=== PATIENT | male | born 1965 | race Caucasian/White ===

== ENCOUNTER 2020-08-18 00:13 | Outpatient (CLI) | payer OTHER, SELFPAY ==
[2020-08-18 19:24] LABS: SARS-CoV-2 RNA PCR Negative
== END 2020-08-18 00:14 | disposition home or self-care (01) ==
LOC: ANHCOVIDDT 00:13
PROVIDERS: PCP Internal Medicine; Visit Provider Internal Medicine Gastroenterology
DX: Z20.828 Contact with and (suspected) exposure to other viral communicable diseases (principal)
CPT/HCPCS: 87635; C9803; U0003

== ENCOUNTER 2020-08-21 01:19 | Day surgery (SDC) | payer OTHER, SELFPAY ==
[2020-08-15 08:40] VITALS: BMI 28.4
[2020-08-21 08:45] VITALS: BP 110/74; PULSE 80; RESP 16; TEMP 36.2; O2SAT 99; BMI 28.7
[2020-08-21] MEDS: LACTATED RINGERS 1,000 ML 150 ML IV CONT (08:53)
--- NOTE | 2020-08-21 09:09 | WPDANESEPPF ---
Anes - Initial Pre Proc Eval Procedure: Operation Date: 08/21/20 10:00 Proposed Procedures p Screening Colonoscopy - Vaughn Ely MD Date/Time: 08/21/20 09:09 Surgeon: Vaughn Ely MD Pre Op Diagnosis: neoplasm screening, hx colon polyps Patient Data Age: 55 Gender: M Height: 5 ft 10 in Weight: 90.7 kg Last Vital Signs Temp 97.2 F L 08/21/20 08:45 Pulse 80 08/21/20 08:45 Resp 16 08/21/20 08:45 BP 110/74 08/21/20 08:45 Pulse Ox 99 08/21/20 08:45 Allergies Allergy/AdvReac Type Severity Reaction Status Date / Time No Known Allergies Allergy Unknown Verified 08/21/20 08:45 Home Medications Medication Instructions Recorded Confirmed Type No Home Medications 08/15/20 08/21/20 History Patient hx anesthesia problems: none Family hx anesthesia problems: none PMFSH Past Medical History Medical History (Updated 08/21/20 @ 09:10 by Cliff Diaz MD) Healthy adult Family History Family History (Updated 05/26/14 @ 07:13 by DOCTOR UNKNOWN) Mother Family history of lung cancer Father Family history of malignant neoplasm of esophagus Social History Social History Smoking status: Never smoker Alcohol intake: current Drinks per week: 12 Substance use: never Substance use type: does not use Living arrangements: with family Gender identity (if verbalized by the patient): Male Spiritual care concerns: No Anes - Eval Final PreProcedure Day of Procedure 08/21/20 09:09 Patient weight: normal Heart: regular rate and rhythm Lungs: clear to auscultation Airway: Mallampati scale class II Neurological: alert and oriented Last oral intake: >/= 8 hours ASA classification: II Emergent: no Anesthetic plan: proceed Anesthesia type and monitoring: general GIVS and standard monitoring Informed Consent: The patient's anesthetic plan and its attendant risks and benefits were discussed with the patient/family/POA. Questions were solicited and answers provided to the satisfaction of the patient/family/POA.
--- NOTE | 2020-08-21 09:29 | WPDGICN ---
Assessment and Plan Assessment and plan (1) History of colon polyps: Code(s): Z86.010 - Personal history of colonic polyps Status: Acute Assessment and Plan: Patient has a history of large colon polyp requiring piecemeal removal. He had recurrent polyp at the site of previous tattooing in previous large polyp resection. He presents today for surveillance colonoscopy. Further recommendations will be given after endoscopy. GI Consult Note Consult date/time: 08/21/20 09:29 HPI: Owen Wright is a 55 year old male Seen in evaluation at the request of Dr. Zafar Robertson. Patient has a history of rather large colon polyp. Surveillance colonoscopy 1 year ago revealed recurrent polyp at the site of previous large colon resection. At the area where tattoo was. Patient presents today for follow-up examination. Current weight appetite bowel movements are normal. He denies abdominal pain he has had no bleeding. Family history is noncontributory. Review of Systems Review of Systems: All systems reviewed & are unremarkable except as noted in HPI and below PMFSH Past Medical History Medical History (Updated 08/21/20 @ 09:31 by Vaughn Ely MD) Healthy adult Family History Family History (Updated 05/26/14 @ 07:13 by DOCTOR UNKNOWN) Mother Family history of lung cancer Father Family history of malignant neoplasm of esophagus Social History Social History Smoking status: Never smoker Alcohol intake: current Drinks per week: 12 Substance use: never Substance use type: does not use Living arrangements: with family Gender identity (if verbalized by the patient): Male Spiritual care concerns: No Meds Home Medications and Allergies Home Medications Medication Instructions Recorded Confirmed Type No Home Medications 08/15/20 08/21/20 History Allergies Allergy/AdvReac Type Severity Reaction Status Date / Time No Known Allergies Allergy Unknown Verified 08/21/20 08:45 Vital Signs Vital Signs - 24 hr 08/21/20 08:45 Temperature 97.2 F L Pulse Rate 80 Respiratory Rate 16 Blood Pressure 110/74 Pulse Oximetry 99 Exam Narrative: Exam Narrative: Physical exam reveals Vital Signs to be stable. HEENT exam unremarkable. Lungs are clear to auscultation and percussion. Heart is without murmur or extra sounds. Abdominal exam bowel sounds present soft nontender with no organomegaly. Digital external rectal exam normal.
[2020-08-21 09:52] VITALS: BP 105/67; PULSE 68; RESP 19; O2SAT 98
[2020-08-21 10:02] VITALS: BP 100/64; PULSE 66; RESP 18; O2SAT 99
[2020-08-21 10:12] VITALS: BP 104/67; PULSE 66; RESP 20; O2SAT 97
== END 2020-08-21 10:25 | disposition home or self-care (01) ==
PROVIDERS: PCP Internal Medicine; Visit Provider Internal Medicine Gastroenterology
PROC: 0DJD8ZZ Inspection of Lower Intestinal Tract, Via Natural or Artificial Opening Endoscopic (ICD-10-PCS; CPT 45378; principal; 2020-08-21 10:00)
DX: Z09 Encounter for follow-up examination after completed treatment for conditions other than malignant neoplasm (principal); D12.3 Benign neoplasm of transverse colon; K64.8 Other hemorrhoids
CPT/HCPCS: 45385; 88305; J2704; J7120

== ENCOUNTER 2023-08-26 02:47 | Day surgery (SDC) | payer OTHER, SELFPAY ==
[2023-08-06 14:44] VITALS: BMI 30.9
--- NOTE | 2023-08-25 09:01 | SUR.PREOP ---
Patient called regarding upcoming procedure. Reviewed preop instructions, appointment times, and procedure prep.
[2023-08-26 06:49] VITALS: BP 132/81; PULSE 94; RESP 16; TEMP 36.1; O2SAT 100; BMI 30.4
[2023-08-26] MEDS: LACTATED RINGERS 1,000 ML 150 ML IV CONT (06:56)
--- NOTE | 2023-08-26 07:29 | P.HP_ITS ---
History of Present Illness History of Present Illness Consent: Risks, benefits, and alternatives have been discussed and questions answered. Patient agrees to proceed with procedure. Chief complaint: hx colon polyps Narrative: Owen Wright is a 58 year old male Presents for colonoscopy. Patient's current weight appetite and bowel movements are normal. Patient has a history of adenomatous colon polyp removed in 2019. Patient's family history is noncontributory. Patient presents today for screening colonoscopy. Review of Systems Review of Systems: Review of systems noncontributory. 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 Healthy adult Hyperlipidemia Hypertriglyceridemia MRSA (methicillin resistant Staphylococcus aureus) Surgical History Surgical History (Updated 05/28/23 @ 11:02 by Lori Barry CMA) H/O colonoscopy Hx of LASIK Family History Family History Mother Family history of lung cancer Father Family history of malignant neoplasm of esophagus Social History Social History Smoking status: Never smoker Alcohol intake: current Drinks per week: 12 Substance use: never Substance use type: does not use Living arrangements: with family Gender identity (if verbalized by the patient): Male Spiritual care concerns: No Meds Home Medications and Allergies Home Medications Medication Instructions Recorded Confirmed Type atorvastatin 10 mg tablet (Lipitor) 10 mg PO QHS #90 tabs 05/28/23 08/26/23 Rx Allergies Allergy/AdvReac Type Severity Reaction Status Date / Time No Known Allergies Allergy Unknown Verified 08/26/23 06:48 Vital Signs Vital Signs - 24 hr 08/26/23 06:49 Temperature 97 F L Pulse Rate 94 Respiratory Rate 16 Blood Pressure 132/81 Pulse Oximetry 100 Oxygen Delivery Room Air Exam Narrative: Physical exam reveals patient to be alert. Vital signs stable. HEENT ENT exam is unremarkable. Patient is anicteric. Lungs are clear to auscultation and percussion. Heart is without murmur or extra sounds. Abdomen bowel sounds are present soft nontender with no hepatosplenomegaly. Digital external rectal exam is normal. Assessment and Plan Assessment and plan (1) History of colon polyps: Code(s): Z86.010 - Personal history of colonic polyps Status: Acute Assessment and Plan: Patient has a history of a large adenomatous colon polyp removed in 2020. Plan for surveillance colonoscopy at this time.
--- NOTE | 2023-08-26 07:45 | P.PNAN_ITS ---
Anes - Initial Pre Proc Eval Procedure: Operation Date: 08/26/23 08:00 Proposed Procedures p Colonoscopy - Vaughn Ely MD Date/Time: 08/26/23 07:45 Surgeon: Vaughn Ely MD Pre Op Diagnosis: hx colon polyps Patient Data Age: 58 Gender: M Height: 1.78 m Weight: 96.4 kg Last Vital Signs Temp 97 F L 08/26/23 06:49 Pulse 94 08/26/23 06:49 Resp 16 08/26/23 06:49 BP 132/81 08/26/23 06:49 Pulse Ox 100 08/26/23 06:49 O2 Del Method Room Air 08/26/23 06:49 Allergies Allergy/AdvReac Type Severity Reaction Status Date / Time No Known Allergies Allergy Unknown Verified 08/26/23 06:48 Home Medications Medication Instructions Recorded Confirmed Type atorvastatin 10 mg tablet (Lipitor) 10 mg PO QHS #90 tabs 05/28/23 08/26/23 Rx Patient hx anesthesia problems: none Family hx anesthesia problems: none Results Review: All pre-operative results and documents have been reviewed as part of the pre-operative evaluation. 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 Healthy adult Hyperlipidemia Hypertriglyceridemia MRSA (methicillin resistant Staphylococcus aureus) Surgical History Surgical History (Updated 05/28/23 @ 11:02 by Lori Barry CMA) H/O colonoscopy Hx of LASIK Family History Family History Mother Family history of lung cancer Father Family history of malignant neoplasm of esophagus Social History Social History Smoking status: Never smoker Alcohol intake: current Drinks per week: 12 Substance use: never Substance use type: does not use Living arrangements: with family Gender identity (if verbalized by the patient): Male Spiritual care concerns: No Anes - Eval Final PreProcedure Day of Procedure 08/26/23 07:45 Patient weight: obese Heart: regular rate and rhythm Lungs: clear to auscultation Airway: Mallampati scale class II Neurological: alert and oriented Last oral intake: >/= 8 hours ASA classification: II Emergent: no Anesthetic plan: proceed Anesthesia type and monitoring: general GIVS and standard monitoring Results Review: All pre-operative results and documents have been reviewed as part of the pre- operative evaluation. Informed Consent: The patient's anesthetic plan and its attendant risks and benefits were discussed with the patient/family/POA. Questions were solicited and answers provided to the satisfaction of the patient/family/POA.
[2023-08-26 08:20] VITALS: BP 122/72; PULSE 76; RESP 22; O2SAT 96
[2023-08-26 08:30] VITALS: BP 115/70; PULSE 79; RESP 20; O2SAT 96
[2023-08-26 08:40] VITALS: BP 125/88; PULSE 76; RESP 17; O2SAT 99
== END 2023-08-26 08:45 | disposition home or self-care (01) ==
PROVIDERS: PCP Family Medicine; Visit Provider Internal Medicine Gastroenterology
PROC: 0DJD8ZZ Inspection of Lower Intestinal Tract, Via Natural or Artificial Opening Endoscopic (ICD-10-PCS; CPT 45378; principal; 2023-08-26 08:00)
DX: Z12.11 Encounter for screening for malignant neoplasm of colon (principal); D12.0 Benign neoplasm of cecum; D12.3 Benign neoplasm of transverse colon; K57.30 Diverticulosis of large intestine without perforation or abscess without bleeding; K64.8 Other hemorrhoids; E78.5 Hyperlipidemia, unspecified
CPT/HCPCS: 45385; 88305; J2704; J7120